=== PATIENT | male | born 1970 | race Caucasian/White ===

== ENCOUNTER 2017-09-23 11:45 | Inpatient (IN) | payer OTHER ==
[2017-09-15 14:58] VITALS: BMI 29.8
--- NOTE | 2017-09-30 06:58 | HP ---
Admitting History and Physical - Admission History of Present Illness: Patient is a 46 y/o male with a past medical history of hepatitis B and osteoarthritis. Patient presents for right total knee replacement to be performed today by Dr Golden. Patient reports feeling well, denies any fever, cough, or recent illnesses. Patient reports ongoing right knee pain. History Source: Patient Limitations to Obtaining History: No Limitations - Past Medical History Gastrointestinal: Yes: Other (hepatitis b) - Smoking History Smoking history: Former smoker Have you smoked in the past 12 months: No If you are a former smoker, when did you quit?: 2008 - Alcohol/Substance Use Hx Alcohol Use: No (QUIT FEW YEARS AGO) Home Medications - Allergies Allergies/Adverse Reactions: Allergies Allergy/AdvReac Type Severity Reaction Status Date / Time No Known Drug Allergies Allergy Verified 09/30/17 06:33 - Home Medications Home Medications: Ambulatory Orders Ibuprofen [Motrin -] 400 mg PO ASDIR PRN 09/15/17 Oxycodone HCl 15 mg PO TID 09/15/17 Oxycodone HCl [Oxycontin] 80 mg PO TID 09/15/17 Tenofovir Disoproxil Fumarate [Viread] 300 mg PO HS 09/15/17 Family Disease History - Family Disease History Family Disease History: Other: Mother ( emphysema ) Review of Systems - Review of Systems Constitutional: reports: No Symptoms Eyes: reports: No Symptoms HENT: reports: No Symptoms, Toothache Neck: reports: No Symptoms Cardiovascular: reports: No Symptoms Respiratory: reports: No Symptoms Gastrointestinal: reports: No Symptoms Genitourinary: reports: No Symptoms Musculoskeletal: reports: Joint Pain Integumentary: reports: No Symptoms Neurological: reports: No Symptoms Endocrine: reports: No Symptoms Hematology/Lymphatic: reports: No Symptoms Psychiatric: reports: No Symptoms Physical Examination Vital Signs: Vital Signs Temperature 97.6 F 09/30/17 06:39 Pulse Rate 61 09/30/17 06:39 Respiratory Rate 16 09/30/17 06:39 Blood Pressure 133/76 09/30/17 06:39 O2 Sat by Pulse Oximetry (%) Constitutional: Yes: Well Nourished, No Distress, Calm Eyes: Yes: WNL, Conjunctiva Clear, EOM Intact HENT: Yes: WNL, Atraumatic, Normocephalic Neck: Yes: WNL, Supple, Trachea Midline Cardiovascular: Yes: WNL, Regular Rate and Rhythm, S1, S2 Respiratory: Yes: WNL, Regular, CTA Bilaterally Gastrointestinal: Yes: WNL, Normal Bowel Sounds, Soft ...Rectal Exam: Yes: Deferred Renal/: Yes: WNL Breast(s): Yes: WNL Musculoskeletal: Yes: Other (right knee: pain upon flexion and extension of the right knee,) Extremities: Yes: Other (pain upon flexion and extension of the right knee) Edema: No Edema: RLE: Trace Peripheral Pulses WNL: Yes Peripheral Pulses: Left Radial: 4+, Right Radial: 4+, Left Doralis Pedis: 3+, Right Dorsalis Pedis: 3+, Left Femoral: 3+, Right Femoral: 3+ Integumentary: Yes: WNL Neurological: Yes: WNL, Alert, Oriented ...Motor Strength: WNL Psychiatric: Yes: WNL, Alert, Oriented Labs: reviewed 09/27 Imaging - Results EKG: Image Reviewed Problem List - Problems (1) Osteoarthritis of knee Assessment/Plan: - pending right knee replacement, Dr Golden - monitor h/h, baseline plts 117 Code(s): M17.10 - UNILATERAL PRIMARY OSTEOARTHRITIS, UNSPECIFIED KNEE (2) Hepatitis B Assessment/Plan: - continue viread (home medication) - monitor platelets, baseline plts 117 - avoid hepatoxic agents Code(s): B19.10 - UNSPECIFIED VIRAL HEPATITIS B WITHOUT HEPATIC COMA Assessment/Plan f/e/n - npo pending or today - replete electrolytes prn ppx - mechanical ac only dispo: pt requires inpatient admission.
[2017-09-30] MEDS ORDERED: SUCCINYLCHOLINE CHLORIDE 200 MG/10 ML VIAL ONE (07:14)
[2017-09-30] MEDS ORDERED: ONDANSETRON 4 MG/2 ML VIAL ONE (07:14)
[2017-09-30] MEDS ORDERED: DEXAMETHASONE SOD PHOSPHATE 4 MG/1 ML VIAL ONE (07:14)
[2017-09-30] MEDS ORDERED: MIDAZOLAM HCL 2 MG/2 ML SINGLE DOSE VIAL ONE ×2 (07:14→07:26)
[2017-09-30] MEDS ORDERED: PROPOFOL 20 ML ONE ×4 (07:14→10:37)
[2017-09-30] MEDS ORDERED: CEFAZOLIN 2 GM in DEXTROSE 5%-WATER - 50 ML IVPB ONE (07:20)
[2017-09-30] MEDS ORDERED: TRANEXAMIC ACID 1000 MG/10 ML VIAL IVPUSH ONE (07:20)
[2017-09-30] MEDS ORDERED: VANCOMYCIN 1,000 MG in DEXTROSE 5%-WATER - 250 ML IVPB ONE (07:20)
[2017-09-30] MEDS ORDERED: ceFAZolin SODIUM 1 GM VIAL ONE ×2 (07:20→11:13)
[2017-09-30] MEDS ORDERED: VANCOMYCIN 1,000 MG VIAL (RESTRICTED TO ID ONLY) ONE (07:20)
[2017-09-30] MEDS ORDERED: SODIUM CHLORIDE 0.9% P/F 10 ML VIAL IJ ONE ×2 (07:21→07:26)
[2017-09-30] MEDS ORDERED: TRANEXAMIC ACID 1000 MG/10 ML VIAL ONE ×2 (07:22→11:13)
[2017-09-30] MEDS ORDERED: BUPIVACAINE LIPOSOME/PF (EXPAREL) 266 MG/20 ML VIAL ONE (07:26)
[2017-09-30] MEDS ORDERED: BUPIVACAINE HCL/PF 2.5 MG/ML - 30 ML VIAL IJ ONE (07:27)
[2017-09-30] MEDS ORDERED: BUPIVACAINE HCL/PF (5 MG/ML) 30 ML VIAL IJ ONE (07:30)
[2017-09-30] MEDS: oxyCODONE HCL 10 MG SUSTAINED ACTING TABLET PO ONE ×2 (07:30→18:37)
[2017-09-30] MEDS: CELECOXIB 200 MG CAPSULE PO ONE ×2 (07:30→15:39)
[2017-09-30] MEDS ORDERED: KETAMINE HCL 200 MG/20 ML VIAL ONE (08:53)
[2017-09-30] MEDS ORDERED: GLYCOPYRROLATE 0.2 MG/1 ML VIAL ONE (08:58)
[2017-09-30] MEDS ORDERED: MAG HYDROX/AL HYDROX/SIMETH 30 ML UNIT-DOSE CUP PO PRN (12:04)
[2017-09-30] MEDS ORDERED: ONDANSETRON 4 MG/2 ML VIAL IVPUSH PRN ×3 (12:04→18:31)
[2017-09-30] MEDS ORDERED: MAGNESIUM HYDROX 2400MG/30ML ORAL SUSPENSION 30 ML CUP PO PRN (12:04)
--- NOTE | 2017-09-30 12:04 | OP ---
Operative Note - Note: Operative Date: 09/30/17 Pre-Operative Diagnosis: Right knee DJD Operation: Right TKA via subvastus approach Implants: Gore Triathlon. Femur - 7. Tibia - 7. Poly - 9, PS. Patella - 27mm Surgeon: Durga Golden Hand Flesher: Kendrick Golden (Co-Surgeon) Anesthesiologist/ZINC PLATE GRAINER: Gee Garcia Anesthesia: Epidural Estimated Blood Loss (mls): 0 Drains & Tubes with Location: 1 x deep HemoVac Operative Report Dictated: Yes
--- NOTE | 2017-09-30 12:09 | PN ---
Progress Note (short form) - Note Progress Note: 46M s/p R TKA via subvastus approach POD #0. -Pain control as per Dr. Louie. -Denia-op abx: Ancef & Vancomycin. -DVT PPx: - Mechanical: SCD's, DIANE's. - Chemical: ASA 81mg PO BID x 6 weeks. -Incentive spirometry. -PT/OT/Rehab, OOB. -WBAT RLE. -f/u drain output. -f/u AM labs. -Discharge planning. -Will follow. Kendrick Golden MD (Orthopaedic Surgery).
[2017-09-30] MEDS ORDERED: LACTATED RINGERS SOLUTION 1,000 ML IV SCH (12:15)
[2017-09-30] MEDS ORDERED: PROMETHAZINE HCL 25 MG/1 ML VIAL IVPUSH PRN (13:16)
[2017-09-30] MEDS ORDERED: oxyCODONE HCL 10 MG SUSTAINED ACTING TABLET ONE (13:21)
[2017-09-30] MEDS ORDERED: oxyCODONE HCL 80 MG SUSTAINED ACTING TABLET PO ONE (13:21)
[2017-09-30] MEDS ORDERED: oxyCODONE HCL 5 MG TABLET PO PRN (14:57)
[2017-09-30] MEDS: oxyCODONE HCL 5 MG TABLET PO PRN ×2 (15:14→20:27)
[2017-09-30] MEDS ORDERED: HYDROmorphone HCL CARPU-JECT 2 MG/1 ML DISP.SYRIN IVPUSH PRN (15:20)
[2017-09-30] MEDS: HYDROmorphone HCL CARPU-JECT 2 MG/1 ML DISP.SYRIN SQ PRN ×2 (15:38→18:32)
[2017-09-30] MEDS ORDERED: diazePAM 2 MG TABLET PO PRN (16:51)
[2017-09-30] MEDS ORDERED: HYDROmorphone *PCA* 10MG/50ML DISP.SYRIN PCA SCH ×3 (17:00→17:15)
[2017-09-30] MEDS ORDERED: ACETAMINOPHEN 325 MG TABLET (FP) PO SCH (18:00)
[2017-09-30] MEDS: CEFAZOLIN 2 GM/D5W 2 GM/50 ML ML IVPB SCH (18:38)
[2017-09-30] MEDS ORDERED: HYDROmorphone HCL CARPU-JECT 2 MG/1 ML DISP.SYRIN IM PRN (18:45)
[2017-09-30] MEDS: diazePAM 5 MG TABLET PO PRN (20:26)
[2017-09-30] MEDS ORDERED: VANCOMYCIN 1 GRAM (PRE-DOCKED) 1,000 MG/250 ML BAG IVPB ONE (21:00)
[2017-09-30] MEDS: GABAPENTIN 300 MG CAPSULE (FP) PO SCH (21:08)
[2017-09-30] MEDS: ASPIRIN 81 MG CHEWABLE TABLETS PO SCH (21:08)
[2017-09-30] MEDS: SENNOSIDES/DOCUSATE COMBO (SENNA PLUS) TABLET (UD) PO SCH (21:08)
[2017-09-30] MEDS: KETOROLAC TROMETHAMINE 30 MG/1 ML VIAL IM PRN (21:30)
[2017-09-30] MEDS ORDERED: PT OWN MED DRAWER 7, Y5N ONE (21:48)
[2017-09-30] MEDS: TENOFOVIR DISOPROXIL FUMARATE 300 MG TABLET PO SCH (21:54)
[2017-09-30] MEDS ORDERED: oxyCODONE HCL 40 MG SUSTAINED ACTING TABLET PO SCH (22:00)
[2017-09-30] MEDS: oxyCODONE HCL 40 MG SUSTAINED ACTING TABLET PO SCH (22:20)
[2017-09-30] MEDS ORDERED: ACETAMINOPHEN 1000 MG/100 ML VIAL (NON FORMULARY) IVPB ONE (23:30)
[2017-10-01] MEDS: oxyCODONE HCL 5 MG TABLET PO PRN ×5 (00:07→16:53)
[2017-10-01] MEDS: CEFAZOLIN 2 GM/D5W 2 GM/50 ML ML IVPB SCH (02:00)
[2017-10-01] MEDS: GABAPENTIN 300 MG CAPSULE (FP) PO SCH ×3 (05:53→21:49)
[2017-10-01] MEDS: diazePAM 5 MG TABLET PO PRN ×3 (05:53→19:49)
[2017-10-01] MEDS: oxyCODONE HCL 40 MG SUSTAINED ACTING TABLET PO SCH ×3 (05:53→21:49)
[2017-10-01] MEDS: KETOROLAC TROMETHAMINE 30 MG/1 ML VIAL IM PRN ×2 (06:57→19:49)
[2017-10-01 08:10] LABS: ANION GAP 5 (8-16); BLOOD UREA NITROGEN 12 mg/dl (7-18); CALCIUM 8.6 mg/dl (8.4-10.2); CHLORIDE 100 mmol/L (98-107); CO2 29 mmol/L (22-28); GLUCOSE,RANDOM 140 mg/dl (74-106); POTASSIUM 3.1 mmol/L (3.5-5.1); SODIUM 134 mmol/L (136-145)
[2017-10-01 08:11] LABS: HEMOGLOBIN 11.7 GM/dl (11.7-16.9); MCH 32.6 pg (25.7-33.7); MCHC 35.3 g/dl (32.0-35.9); MEAN CELL VOLUME 92.4 fl (80-96); PLATELET COUNT 143 K/MM3 (134-434); RBC 3.58 M/mm3 (4.00-5.60); RDW 12.2 % (11.9-15.9); WHITE BLOOD COUNT 12.5 K/mm3 (4.0-10.8)
--- NOTE | 2017-10-01 08:23 | OP ---
DATE OF OPERATION: 09/30/2017 SURGEON: Durga Golden MD CO-SURGEON: Kendrick Golden MD PREOPERATIVE DIAGNOSIS: Right tricompartment osteoarthritis and fixed valgus deformity, knee. POSTOPERATIVE DIAGNOSIS: Right tricompartment osteoarthritis and fixed valgus deformity, knee. OPERATION PERFORMED: Right cemented, posterior-stabilized total knee arthroplasty (Yaneth). ANESTHESIA: Spinal anesthesia with peripheral block. TOURNIQUET TIME: 2 hours. ANTIBIOTICS GIVEN: Kefzol 2 g, vancomycin 1 g preoperative, Kefzol 1 g at the time of release of the tourniquet; tranexamic acid given. PROCEDURE: Patient correctly identified, brought to the operating room. Right lower extremity was prepped, free draped in the routine manner with Betadine scrub solution, wiped off with alcohol, DuraPrep applied. Timeout was called. Imaging was available for intraoperative evaluation. Preoperative evaluation revealed, under anesthesia, a fixed valgus right knee, marked crepitus in the patellofemoral and lateral tibiofemoral joints noted. A midline incision utilized. The incision was taken about 3 inches just above the superior pole of the patella, down to 1 inch distal to the tibial tubercle. The subcutaneous tissue was dissected down to the fascia. The medial side of the retinacular tissues was opened, extending down to the medial side of the tibia. The soft tissue of the proximal tibial bed was dissected off the tibial bone itself. The incision was then at the level of the vastus medialis muscle, a cuff of 1 cm of tissue was left behind, and the margin of vastus medialis followed right down to the linea aspera of the femur, and a subvastus approach utilized. A Hohmann placed under the vastus to bring about subluxation of the patella. The patella was not capsized. A free-hand cut of the patella was made with an oscillating saw from patella ligament to quadriceps tendon. This was in accordance with Fountain's principles. The appropriate jigs were placed in. These were Beegit instruments. The tibia was cut to neutral. The subvastus approach gave easy access to the entire knee. As I am seeing him here, there was no difficulty in getting exposure. The tibia was cut to neutral with the appropriate jig system. The femur was cut to 3 degrees of external rotation, 4 degrees of valgus, and the joint line was proximalized by 4 mm. This in order to gain a healthy surface for appropriate cementation for the femoral bed. Once the jig cuts were made, the trialing components revealed excellent realignment of the knee both in sagittal as well as coronal plane. The definitive prosthesis was then inserted. This was a Triathlon posterior-stabilized knee. The femur measured size 4, the baseplate size 4. The polyethylene was a 4 x 9 mm, and a symmetric patella was utilized measuring 27 mm. After all appropriate jig cuts were made , the cementing was in 1 stage. All extraneous cement was removed. The patella was then reduced in position with the vastus medialis and the entire quadriceps mechanism in place. Hemostasis was achieved as best we could, but a 1/8-inch Hemovac drain was placed, particularly biased medially but brought out laterally to deal with the subvastus dissection. Closure with fascia 1 Vicryl, subcutaneous 1 and 2-0 Vicryl, 3-0 Monocryl to the skin with Steri-Strips. Drains: As outlined above x1. No complications. Postoperative x-rays were excellent. MD AMRITA Mccartney/[id number] MTDD
[2017-10-01 08:35] LABS: CREATININE < 0.8 mg/dl (0.6-1.3)
[2017-10-01 09:25] LABS: MAGNESIUM 1.7 mg/dL (1.8-2.4); PHOSPHOROUS 2.8 mg/dl (2.5-4.6)
[2017-10-01] MEDS ORDERED: POTASSIUM CHLORIDE TABS 20 MEQ TABLET.ER (FP) PO ONE (09:30)
[2017-10-01] MEDS: PANTOPRAZOLE 40 MG TABLET (FP) PO SCH (09:40)
[2017-10-01] MEDS: SENNOSIDES/DOCUSATE COMBO (SENNA PLUS) TABLET (UD) PO SCH ×2 (09:40→21:49)
[2017-10-01] MEDS: ASPIRIN 81 MG CHEWABLE TABLETS PO SCH ×2 (09:41→21:49)
[2017-10-01] MEDS ORDERED: MAGNESIUM SULFATE IN WATER 2 GM/50 ML IVPB IVPB ONE (10:00)
--- NOTE | 2017-10-01 10:07 | PN ---
Progress Note (short form) - Note Progress Note: 46M with history of chronic pain POD1 s/p RTKR under spinal anesthetic with peripheral nerve blocks for post operative pain relief. Pt states that his pain is not well controlled. AVSS, sensory and motor function intact in bilateral lower extremities. Dr. Louie consulted for management of acute and chronic pain. Will continue to defer to his recommendation for management of pain medication.
--- NOTE | 2017-10-01 13:47 | PN ---
Physical Exam: SUBJECTIVE: Patient seen and examined, patient reports ongoing left knee pain. OBJECTIVE: Patient is a 46 y/o male with a past medical history of hepatitis B and osteoarthritis, patient was admitted for an elective right knee replacement. Vital Signs Period Temp Pulse Resp BP Sys/Costa Pulse Ox Last 24 Hr 97.8 F-99.0 F 50-77 12-20 140-156/72-85 98-100 GENERAL: The patient is awake, alert, and fully oriented,anxious and tearful. HEAD: Normal with no signs of trauma. EYES: PERRL, extraocular movements intact, sclera anicteric, conjunctiva clear. No ptosis. ENT: Ears normal, nares patent, oropharynx clear without exudates, moist mucous membranes. NECK: Trachea midline, full range of motion, supple. LUNGS: Breath sounds equal, clear to auscultation bilaterally, no wheezes, no crackles, no accessory muscle use. HEART: Regular rate and rhythm, S1, S2 without murmur, rub or gallop. ABDOMEN: Soft, nontender, nondistended, normoactive bowel sounds, no guarding, no rebound, no hepatosplenomegaly, no masses. EXTREMITIES: 2+ pulses, warm, well-perfused, no edema. RIGHT LOWER EXTREMITIES: scant bleeding noted, hemovac scant sangenous drainage NEUROLOGICAL: Cranial nerves II through XII grossly intact. Normal speech, gait not observed. PSYCH: Normal mood, normal affect. SKIN: Warm, dry, normal turgor, no rashes or lesions noted Laboratory Results - last 24 hr 09/30/17 09/30/17 10/01/17 16:25 16:25 07:20 WBC RBC Hgb Hct MCV MCH MCHC RDW Plt Count MPV Sodium Potassium Chloride Carbon Dioxide Anion Gap BUN Creatinine Random Glucose Calcium Phosphorus 2.8 Magnesium 1.7 L ALT 33 HIV 1&2 Antibody Screen Negative HIV P24 Antigen Negative 10/01/17 10/01/17 07:30 07:30 WBC 12.5 H RBC 3.58 L Hgb 11.7 Hct 33.0 L MCV 92.4 MCH 32.6 MCHC 35.3 RDW 12.2 Plt Count 143 MPV 10.0 Sodium 134 L Potassium 3.1 L Chloride 100 Carbon Dioxide 29 H Anion Gap 5 L BUN 12 Creatinine < 0.8 Random Glucose 140 H Calcium 8.6 Phosphorus Magnesium ALT HIV 1&2 Antibody Screen HIV P24 Antigen Active Medications Generic Name Dose Route Start Last Admin Trade Name Freq PRN Reason Stop Dose Admin Al Hydroxide/Mg Hydroxide 30 ml 09/30/17 12:04 Mylanta Oral Suspension - PO Q4H PRN DYSPEPSIA Aspirin 81 mg 09/30/17 22:00 10/01/17 09:41 Asa - PO 81 mg BID BHARAT Administration Diazepam 5 mg 09/30/17 18:46 10/01/17 13:06 Valium - PO 10/02/17 18:45 5 mg TID PRN Administration ANXIETY Diphenhydramine HCl 12.5 mg 09/30/17 18:27 10/01/17 00:08 Benadryl Injection - IVPUSH 12.5 mg Q4H PRN Administration PRURITIS Fentanyl 50 mcg 09/30/17 13:16 Sublimaze Injection - IVPUSH [id number] PRN PAIN-PACU ORDER X 4 DOSES ONLY Gabapentin 300 mg 09/30/17 22:00 10/01/17 05:53 Neurontin - PO 300 mg TID [facility] Administration Ketorolac Tromethamine 30 mg 09/30/17 21:11 10/01/17 06:57 Toradol Injection - IM 10/05/17 21:10 30 mg Q8H PRN Administration PAIN LEVEL 1-5 Magnesium Hydroxide 30 ml 09/30/17 12:04 Milk Of Magnesia - PO PRN PRN CONSTIPATION Ondansetron HCl 4 mg 09/30/17 12:04 Zofran Injection IVPUSH Q6H PRN NAUSEA Ondansetron HCl 4 mg 09/30/17 13:16 Zofran Injection IVPUSH Q6H PRN NAUSEA AND/OR VOMITING Ondansetron HCl 4 mg 09/30/17 18:31 Zofran Injection IVPUSH Q4H PRN NAUSEA AND/OR VOMITING Oxycodone HCl 15 mg 09/30/17 14:57 Roxicodone - PO Q4H PRN PAIN LEVEL 1-5 Oxycodone HCl 20 mg 09/30/17 14:57 10/01/17 12:55 Roxicodone - PO 20 mg Q4H PRN Administration PAIN LEVEL 6-10 Oxycodone HCl 80 mg 09/30/17 20:45 10/01/17 05:53 Oxycontin - PO 80 mg TID BHARAT Administration Pantoprazole Sodium 40 mg 10/01/17 10:00 10/01/17 09:40 Protonix - PO 40 mg DAILY BHARAT Administration Promethazine HCl 12.5 mg 09/30/17 13:16 Phenergan Injection - IVPUSH Q6H PRN NAUSEA-FOR RESCUE AFTER 15 MIN Senna/Docusate Sodium 2 tablet 09/30/17 22:00 10/01/17 09:40 Pericolace - PO 2 tablet BID BHARAT Administration Tenofovir Disoproxil Fumarate 300 mg 09/30/17 22:00 09/30/17 21:54 Viread - PO 300 mg HS BHARAT Administration ASSESSMENT/PLAN: 1)ms s/p left knee replacement - hgb stable - physical therapy as per ortho - prn pain medication chronic back pain - medications verifed with [facility] Reference #: [id number], patient takes oxycodone 15mg TID and oxycodone 80mg ER TID., continue home medications 2) GI hepatitis B - continue viread (home medication) - monitor platelets, baseline plts 117 - avoid hepatoxic agents f/e/n hypokalemia - replete potassium and mg ppx - asa 81mg bid - protonix dispo: pt requires inpatient admission. Problem List - Problems (1) Osteoarthritis of knee Code(s): M17.10 - UNILATERAL PRIMARY OSTEOARTHRITIS, UNSPECIFIED KNEE (2) Hepatitis B Code(s): B19.10 - UNSPECIFIED VIRAL HEPATITIS B WITHOUT HEPATIC COMA Visit type - Emergency Visit Emergency Visit: No - New Patient This patient is new to me today: No - Critical Care Critical Care patient: No - Discharge Referral Referred to [facility] No
--- NOTE | 2017-10-01 18:26 | CONSULT ---
Consult Consult Specialty:: Pain Management Reason for Consultation:: Rt Knee pain s/p TKA - History of Present Illness History of Present Illness: 46 yr old male with h/o OA Rt Knee underwent RT Knee replacement c/o Rt Knee pain 05/19. He mentioned that he had Sciatica and taking oxycontin 80 mg TID and Oxycodone 15 mg PO TID . IV diluadid and Toradol did not help. - History Source History Provided By: Patient - Past Medical History Gastrointestinal: Yes: Other (hepatitis b) Musculoskeletal: Yes: Other (OA) - Alcohol/Substance Use Hx Alcohol Use: No (QUIT FEW YEARS AGO) - Smoking History Smoking history: Former smoker Have you smoked in the past 12 months: No If you are a former smoker, when did you quit?: 2007 Home Medications - Allergies Allergies/Adverse Reactions: Allergies Allergy/AdvReac Type Severity Reaction Status Date / Time No Known Drug Allergies Allergy Verified 09/30/17 06:33 - Home Medications Home Medications: Ambulatory Orders Ibuprofen [Motrin -] 400 mg PO ASDIR PRN 09/15/17 Oxycodone HCl 15 mg PO TID 09/15/17 Oxycodone HCl [Oxycontin] 80 mg PO TID 09/15/17 Tenofovir Disoproxil Fumarate [Viread] 300 mg PO HS 09/15/17 Family Disease History - Family Disease History Family Disease History: Other: Mother ( emphysema ) Review of Systems - Review of Systems Constitutional: reports: No Symptoms Eyes: reports: No Symptoms HENT: reports: No Symptoms Neck: reports: No Symptoms Cardiovascular: reports: No Symptoms Respiratory: reports: No Symptoms Gastrointestinal: reports: No Symptoms Genitourinary: reports: No Symptoms Musculoskeletal: reports: Other (RT Knee pain) Neurological: reports: No Symptoms Physical Exam Vital Signs: Vital Signs Temperature 99.4 F 10/01/17 14:00 Pulse Rate 76 10/01/17 14:00 Respiratory Rate 19 10/01/17 14:00 Blood Pressure 161/83 10/01/17 14:00 O2 Sat by Pulse Oximetry (%) 96 10/01/17 14:00 Constitutional: Yes: Well Nourished Eyes: Yes: WNL HENT: Yes: WNL Neck: Yes: WNL Musculoskeletal: Yes: Other ( Rt Knee - dressing + , Drainage tube +) Extremities: Yes: WNL Edema: No Neurological: Yes: WNL ...Motor Strength: WNL Psychiatric: Yes: Other (mood swing) Labs: CBC, BMP 10/01/17 07:30 10/01/17 07:30 Problem List - Problems (1) Postoperative pain of right knee Code(s): M25.561 - PAIN IN RIGHT KNEE; G89.18 - OTHER ACUTE POSTPROCEDURAL PAIN Assessment/Plan Discussed in detail and answered all questions. 1. contniue current care 2. Physical therapy 3. Oxycontin 80 mg PO TID 4.Oxycodone 15 mg po TID 5. Psych eval which he refused 6. Cymbalta 30 mg PO qd 7. D/C Valium 8. after Hospital discharge, He will get pain medication with his previous pain physician. Thanks for your kind referral please call me if pain not well controlled .
[2017-10-01] MEDS: DULoxetine HCL 30 MG CAPSULE.DR (FP) PO SCH (19:08)
[2017-10-01] MEDS: oxyCODONE HCL 5 MG TABLET PO SCH (21:48)
[2017-10-01] MEDS: TENOFOVIR DISOPROXIL FUMARATE 300 MG TABLET PO SCH (21:54)
[2017-10-01] MEDS ORDERED: PT OWN MED DRAWER 7, Y5N ONE (21:54)
[2017-10-02] MEDS: oxyCODONE HCL 5 MG TABLET PO SCH ×2 (05:39→14:11)
[2017-10-02] MEDS: oxyCODONE HCL 40 MG SUSTAINED ACTING TABLET PO SCH ×2 (05:40→14:10)
[2017-10-02] MEDS: GABAPENTIN 300 MG CAPSULE (FP) PO SCH ×2 (05:40→14:12)
[2017-10-02 08:07] LABS: HBsAG CONFIRMATION Positive (.); HBsAG SCREEN Confirm. indicated (Negative)
[2017-10-02] MEDS: DULoxetine HCL 30 MG CAPSULE.DR (FP) PO SCH (09:33)
[2017-10-02] MEDS: SENNOSIDES/DOCUSATE COMBO (SENNA PLUS) TABLET (UD) PO SCH (09:33)
[2017-10-02] MEDS: ASPIRIN 81 MG CHEWABLE TABLETS PO SCH (09:33)
[2017-10-02] MEDS: PANTOPRAZOLE 40 MG TABLET (FP) PO SCH (09:33)
[2017-10-02 10:27] LABS: BASO % 0.4 % (0-2.0); EOS % 0.3 % (0-4.5); HEMATOCRIT 30.5 % (35.4-49); LYMPH % 11.5 % (8-40); MCH 33.2 pg (25.7-33.7); MCHC 36.2 g/dl (32.0-35.9); MEAN CELL VOLUME 91.9 fl (80-96); MEAN PLT VOLUME 9.8 fl (7.5-11.1); MONO % 11.1 % (3.8-10.2); NEUT % 76.7 % (42.8-82.8); PLATELET COUNT 131 K/MM3 (134-434); RBC 3.32 M/mm3 (4.00-5.60); RDW 12.1 % (11.9-15.9); WHITE BLOOD COUNT 13.8 K/mm3 (4.0-10.8)
[2017-10-02 10:41] LABS: ANION GAP 5 (8-16); BLOOD UREA NITROGEN 13 mg/dl (7-18); CALCIUM 8.5 mg/dl (8.4-10.2); CHLORIDE 97 mmol/L (98-107); CO2 29 mmol/L (22-28); CREATININE 0.6 mg/dl (0.6-1.3); GLUCOSE,RANDOM 125 mg/dl (74-106); PHOSPHOROUS 2.5 mg/dl (2.5-4.6); POTASSIUM 3.4 mmol/L (3.5-5.1); SODIUM 131 mmol/L (136-145)
[2017-10-02] MEDS ORDERED: POTASSIUM CHLORIDE TABS 20 MEQ TABLET.ER (FP) PO ONE (11:30)
[2017-10-02 14:42] VITALS: BP 157/76; PULSE 92; TEMP 98.8
--- NOTE | 2017-10-02 15:14 | DS ---
Physical Exam: SUBJECTIVE: Patient seen and examined, ambulatory at bedside with the assistance of a walker, denies any chest pain or shortness of breath, does report pain to right knee, patient denies any paresthesia to the extremity. OBJECTIVE: Patient is a 46 y/o male with a past medical history of hepatitis B, hepatitis c , and osteoarthritis. Patient presents for right total knee replacement to be performed today by Dr Golden. Patient reports feeling well, denies any fever, cough, or recent illnesses. Patient reports ongoing right knee pain. Vital Signs Temperature 98.8 F 10/02/17 14:40 Pulse Rate 92 H 10/02/17 14:40 Respiratory Rate 18 10/02/17 14:40 Blood Pressure 157/76 10/02/17 14:40 O2 Sat by Pulse Oximetry (%) 99 10/02/17 14:40 PHYSICAL EXAM GENERAL: The patient is awake, alert, and fully oriented, in no acute distress. HEAD: Normal with no signs of trauma. EYES: PERRL, extraocular movements intact, sclera anicteric, conjunctiva clear. ENT: Ears normal, nares patent, oropharynx clear without exudates, moist mucous membranes. NECK: Trachea midline, full range of motion, supple. LUNGS: Breath sounds equal, clear to auscultation bilaterally, no wheezes, no crackles, no accessory muscle use. HEART: Regular rate and rhythm, S1, S2 without murmur, rub or gallop. ABDOMEN: Soft, nontender, nondistended, normoactive bowel sounds, no guarding, no rebound, no hepatosplenomegaly, no masses. EXTREMITIES: 2+ pulses, warm, well-perfused, no edema. RIGHT LOWER EXTREMITY: a NEUROLOGICAL: Cranial nerves II through XII grossly intact. Normal speech, gait not observed. PSYCH: Normal mood, normal affect. SKIN: Warm, dry, normal turgor, no rashes or lesions noted. LABS CBC,CMP WBC 13.8 K/mm3 (4.0-10.8) H 10/02/17 09:30 RBC 3.32 M/mm3 (4.00-5.60) L 10/02/17 09:30 Hgb 11.0 GM/dl (11.7-16.9) L 10/02/17 09:30 Hct 30.5 % (35.4-49) L 10/02/17 09:30 MCV 91.9 fl (80-96) 10/02/17 09:30 MCH 33.2 pg (25.7-33.7) 10/02/17 09:30 MCHC 36.2 g/dl (32.0-35.9) H 10/02/17 09:30 RDW 12.1 % (11.9-15.9) 10/02/17 09:30 Plt Count 131 K/MM3 (134-434) L 10/02/17 09:30 MPV 9.8 fl (7.5-11.1) 10/02/17 09:30 Neutrophils % 76.7 % (42.8-82.8) 10/02/17 09:30 Lymphocytes % 11.5 % (8-40) 10/02/17 09:30 Monocytes % 11.1 % (3.8-10.2) H 10/02/17 09:30 Eosinophils % 0.3 % (0-4.5) 10/02/17 09:30 Basophils % 0.4 % (0-2.0) 10/02/17 09:30 Sodium 131 mmol/L (136-145) L 10/02/17 09:30 Potassium 3.4 mmol/L (3.5-5.1) L 10/02/17 09:30 Chloride 97 mmol/L (98-107) L 10/02/17 09:30 Carbon Dioxide 29 mmol/L (22-28) H 10/02/17 09:30 Anion Gap 5 (8-16) L 10/02/17 09:30 BUN 13 mg/dl (7-18) 10/02/17 09:30 Creatinine 0.6 mg/dl (0.6-1.3) D 10/02/17 09:30 Random Glucose 125 mg/dl (74-106) H 10/02/17 09:30 Calcium 8.5 mg/dl (8.4-10.2) 10/02/17 09:30 Phosphorus 2.5 mg/dl (2.5-4.6) 10/02/17 09:30 Magnesium 2.0 mg/dL (1.8-2.4) 10/02/17 09:30 ALT 33 U/L (10-40) 09/30/17 16:25 HOSPITAL COURSE: The patient was admitted to the Med-Surg Unit after an elective left total knee replacement, Dr Golden. On postoperative day 1, the patient ambulated the hallways with assistance. Narcotic and non-narcotic pain management control was achieved with an oral and IV approach. POD #2, the surgical drain was removed fully intact and without incident. Denia-operative IV ABX were administered. DVT prophylaxis was achieved with SCDs and early ambulation. The patient ambulated with Physical Therapy and patient will receive home physical therapy services. . Narcotic scripts and or muscle relaxants were checked with [place] [facility], patient received 90 tablets of oxycodone 15mg and oxycodone er 80mg on 10/05/17, reference # [id number]. The discharge instructions and an oral pain management plan were reviewed with the patient. All questions answered. Above plan discussed with Dr. Golden and agreed. Date of Admission:09/30/17 Date of Discharge: 10/02/17 Minutes to complete discharge: 45 Visit type - Case Type Case Type: Scheduled Admission - Emergency Emergency Visit: No - New patient This patient is new to me today: No - Critical Care Critical Care patient: No
--- NOTE | 2017-10-08 12:06 | PATH ---
Surgical Pathology Report Patient Name: JOHANA GONZALEZ Med. Rec. #: [id number] /Age/Gender: 1970 (Age: 46) / M Account: [id number] [facility] Taken: 09/30/2017 Received: 09/30/2017 Reported: 10/08/2017 Physicians: Kendrick Golden M.D. Specimen(s) Received A: RIGHT KNEE BONE B: RIGHT KNEE SYNOVIUM Clinical History Osteoarthritis right knee Final Diagnosis A. KNEE BONES, RIGHT, TOTAL KNEE REPLACEMENT: DEGENERATIVE JOINT DISEASE. B. TENOSYNOVIUM, RIGHT KNEE, EXCISION: FIBROSYNOVIAL TISSUE SHOWING PROMINENT LYMPHOPLASMACYTIC (CHRONIC) INFLAMMATORY INFILTRATE, VASCULAR CONGESTION AND REACTIVE SYNOVIAL HYPERPLASIA. (SEE NOTE) Note: Although these findings are non-specific, dense lymphoplasmacytic infiltrate involving synovium with reactive synovial hyperplasia may be seen in association with rheumatoid arthritis. Correlation with clinico-radiologic and serologic findings is suggested. Electronically Signed Anahy Castillo M.D. Gross Description A. Received in formalin labeled "right knee bones," is a 13.5 x 11.0 x 2.5 cm aggregate of multiple calvin, irregular portions of bone and soft tissue. The tibial plateau measures 8.5 x 5.7 x 1.7 cm. There is a 1.7 cm in greatest dimension area of eburnation present. The remaining articular surfaces are calvin-yellow and focally granular. The underlying trabecular bone is yellow and hard. Cloth Washer sections are submitted in one cassette, following decalcification. B. Received in formalin labeled "right knee synovium," is a 2.8 x 2.2 x 0.3 cm aggregate of multiple calvin-yellow, irregular portions of soft tissue, consistent with tenosynovium. The specimens are sectioned and entirely submitted in one cassette. 10/01/201710/01/2017
== END 2017-10-02 17:40 | disposition home health service (06) | DRG 470 ==
LOC: FM/S 09-30 05:51
PROVIDERS: ADMIT Orthopaedic Surgery Orthopaedic Surgery of the Spine; ATTEND Orthopaedic Surgery Orthopaedic Surgery of the Spine
PROC: 0SRC0J9 Replacement of Right Knee Joint with Synthetic Substitute, Cemented, Open Approach (ICD-10-PCS; principal; 2017-09-30 08:00)
DX: M17.11 Unilateral primary osteoarthritis, right knee (principal); M21.061 Valgus deformity, not elsewhere classified, right knee; G89.18 Other acute postprocedural pain; E87.6 Hypokalemia; Z87.891 Personal history of nicotine dependence
CPT/HCPCS: 36415; 73560-TC-RT-FY; 80048; 83735; 84100; 84460; 85025; 85027; 86803; 87340; 87389; 94010; 94760; 97116-GP